=== PATIENT | male | born 1975 ===

== ENCOUNTER 2023-04-25 08:30 | Day surgery (SDC) | payer OTHER ==
[~2023-04-25] VITALS: Ht 167.6 cm; Wt 100.4 kg
[2023-04-25] VITALS (8 sets, daily range): BP systolic 138–171; BP diastolic 82–125; PULSE 68–76; RESP 13–16; TEMP 97.8; O2SAT 100
[~2023-04-25 08:30] MED LIST: NO HOME MEDS; cefazolin 2gm/D5W 100mL 100 ML IV ONE; famotidine 20mg tablet PO ONE; ringers solution, lacted 1,000 ML IV SCH
[2023-04-25] MEDS ORDERED: ringers solution, lacted 1,000 ML IV SCH (10:15)
[2023-04-25] MEDS ORDERED: fentaNYL/PF 50MCG/1 ML 2ML syringe IV PRN ×2 (10:15)
[2023-04-25] MEDS ORDERED: morphine 2 MG/ML inj. syringe IV PRN (10:15)
[2023-04-25] MEDS ORDERED: ondansetron/PF 4mg/2ml inj IV PRN (10:15)
[2023-04-25] MEDS ORDERED: hydrALAZINE 20mg/ml inj. IV PRN (10:15)
[2023-04-25] MEDS ORDERED: morphine 4 MG/ML inj SYRINge IV PRN (10:15)
[2023-04-25] MEDS ORDERED: labetalol 20mg/4ml (5mg/ml) syringe IV PRN (10:15)
[2023-04-25] MEDS ORDERED: epiNEPHrine 1 mg/ml 30ml MDV ONE (10:55)
[2023-04-25] MEDS ORDERED: BUPIVAcaine 2.5mg/ml inj 50ml vial (contains preservative) ONE (10:56)
[2023-04-25] MEDS ORDERED: fentaNYL/PF 50MCG/1 ML 2ML syringe ONE ×2 (11:21→12:20)
[2023-04-25] MEDS ORDERED: ondansetron/PF 4mg/2ml inj ONE (11:22)
[2023-04-25] MEDS ORDERED: LIDOcaine 2% (20mg/ml) 5ml vial ONE (11:22)
[2023-04-25] MEDS ORDERED: midazolam 1 mg/ML 2ml injection ONE (11:22)
[2023-04-25] MEDS ORDERED: dexamethasone sod phosphate 4mg/ml inj. ONE (11:22)
[2023-04-25] MEDS ORDERED: acetaminophen 1,000mg/100ml IV 100 ML IV ONE (11:22)
[2023-04-25] MEDS ORDERED: propofol inj 20 ML IV ONE (11:22)
[2023-04-25] MEDS ORDERED: ROPIVAcaine 0.5% (5mg/ml) 30ml vial ONE (11:22)
[2023-04-25] MEDS ORDERED: desflurane 240ml liquid inh. IH ONE (11:35)
[2023-04-25] MEDS ORDERED: labetalol 20mg/4ml (5mg/ml) syringe IV ONE (11:35)
[2023-04-25] MEDS ORDERED: ketorolac trometh. 30mg/ml inj. ONE (12:19)
[2023-04-25] MEDS ORDERED: epiNEPHrine 1 mg/ml 30ml MDV SQ ONE (12:38)
[2023-04-25] MEDS ORDERED: BUPIVAcaine 2.5mg/ml inj 50ml vial (contains preservative) IJ ONE (13:04)
== END 2023-04-25 14:45 ==
LOC: PAS 08:30
PROVIDERS: ATTEND Orthopaedic Surgery
DX: M19.012 Primary osteoarthritis, left shoulder (principal); M75.42 Impingement syndrome of left shoulder; M75.52 Bursitis of left shoulder; M65.812 Other synovitis and tenosynovitis, left shoulder; M75.102 Unspecified rotator cuff tear or rupture of left shoulder, not specified as traumatic; E66.3 Overweight; Z68.35 Body mass index [BMI] 35.0-35.9, adult; Z87.891 Personal history of nicotine dependence; Z86.19 Personal history of other infectious and parasitic diseases; F11.10 Opioid abuse, uncomplicated; Z79.899 Other long term (current) drug therapy
CPT/HCPCS: 29820; 29824; 29826; 82948; J0131; J0171; J0360; J0690; J1100; J1885; J2250; J2270; J2405; J2704; J2795; J3010; J3490; J7120; Z7506; Z7508; Z7512; A4215; A4618; A7000